=== PATIENT | female | born 1990 | race Caucasian/White ===

== ENCOUNTER 2022-05-21 10:06 | Emergency (ER) | payer OTHER ==
[~2022-05-21] VITALS: Ht 172.7 cm; Wt 100.0 kg
[2022-05-21] MEDS ORDERED: htn PO (10:17)
[2022-05-21] MEDS ORDERED: birth control PO (10:17)
[2022-05-21] MEDS ORDERED: CITA10TA99 PO (10:17)
[2022-05-21] MEDS ORDERED: AMLO-257 PO (10:18)
[2022-05-21] MEDS ORDERED: AMPICILLIN SODIUM/SULBACTAM NA 3 GM in SODIUM CHLORIDE 0.9% 100 ML IV ONE (12:30)
[2022-05-21] MEDS ORDERED: BACITRACIN 0.9 GM PACKET OINTMENT TP ONE (12:30)
[2022-05-21] MEDS ORDERED: RABIES IMMUNE GLOBULIN/PF 300 UNITS/ML 5 ML VIAL IM. ONE (12:30)
[2022-05-21] MEDS ORDERED: RABIES VACCINE, HUMAN DIPLOID/PF 2.5 UNITS/ML VIAL IM. ONE (12:30)
[2022-05-21] MEDS ORDERED: PERTUSS(ACELL),DIPH,TET VAC/PF 0.5 ML SYRINGE IM. ONE (12:30)
[2022-05-21 12:45] VITALS: BP 135/75
[2022-05-21] MEDS ORDERED: ACETAMINOPHEN 500 MG TABLET PO ONE (12:45)
[2022-05-21] MEDS ORDERED: IBUPROFEN 600 MG TABLET PO ONE (12:45)
[2022-05-21] MEDS ORDERED: SODIUM CHLORIDE 0.9% 1,000 ML IV ONE (12:45)
[2022-05-21] MEDS ORDERED: ONDANSETRON HCL 4 MG/2 ML VIAL IVP ONE (12:45)
[2022-05-21] MEDS ORDERED: AMOX1TAB16 PO (13:32)
== END 2022-05-21 15:40 | disposition home or self-care (01) ==
LOC: EMS 10:09
DX: S61.431A Puncture wound without foreign body of right hand, initial encounter (principal); S61.432A Puncture wound without foreign body of left hand, initial encounter; I10 Essential (primary) hypertension; F41.9 Anxiety disorder, unspecified; F12.90 Cannabis use, unspecified, uncomplicated; Z79.899 Other long term (current) drug therapy; W54.0XXA Bitten by dog, initial encounter; Y93.89 Activity, other specified; Y92.89 Other specified places as the place of occurrence of the external cause; Y99.8 Other external cause status
CPT/HCPCS: 90375; 99284; 90675; 96365; 96374; 96366; 73090; 73130 ×2; 90715; 90471; 90472; 96372; J2405; J0295; J7030; J7050

== ENCOUNTER 2022-05-24 08:55 | Emergency (ER) | payer OTHER ==
[~2022-05-24] VITALS: Ht 172.7 cm; Wt 100.0 kg
[~2022-05-24 08:55] MED LIST: AMLO-257 PO; AMOX1TAB16 PO; CITA10TA99 PO; birth control PO
[2022-05-24 08:58] VITALS: BP 158/110
[2022-05-24] MEDS ORDERED: IBUP-1492 PO (09:06)
[2022-05-24] MEDS ORDERED: RABIES VACCINE, HUMAN DIPLOID/PF 2.5 UNITS/ML VIAL IM. ONE (09:15)
== END 2022-05-24 10:35 | disposition home or self-care (01) ==
LOC: EMS 08:59
DX: Z23 Encounter for immunization (principal); F41.9 Anxiety disorder, unspecified; I10 Essential (primary) hypertension; F12.90 Cannabis use, unspecified, uncomplicated
CPT/HCPCS: 90471; 90675; 99281